=== PATIENT | male | born 1980 | race Caucasian/White ===

== ENCOUNTER 2017-06-26 15:24 | Emergency (ER) | payer OTHER ==
[2017-06-26] MEDS ORDERED: CEPHALEXIN 500 MG CAPSULE PO ONE (15:36)
[2017-06-26] MEDS ORDERED: DIPH/PERTUSS(ACELL)/TETANUS VAC/PF 0.5 ML SYR (>=10YO) IM ONE (15:36)
--- NOTE | 2017-06-26 15:38 | ER Document Report ---
ED General - General Stated Complaint: LEFT LEG INJURY Time Seen by Provider: 06/26/17 15:26 Mode of Arrival: Ambulatory Information source: Patient Notes: 37-year-old male presents with a nail in his left lateral calf. Patient notes he was walking and accidentally got the nail embedded in his leg, both catheters were used to cut the nail in half and patient was brought in by EMS TRAVEL OUTSIDE OF THE [place] IN LAST 30 DAYS: No - HPI Onset: Just prior to arrival Onset/Duration: Sudden Quality of pain: Sharp Severity: Mild Pain Level: 1 Associated symptoms: Other - Patient given 100 mics of fentanyl prior to arrival Exacerbated by: Denies Relieved by: Other Similar symptoms previously: No Recently seen / treated by doctor: No - Related Data Allergies/Adverse Reactions: No Known Allergies Allergy (Verified 09/03/14 13:07) Past Medical History - Social History Smoking Status: Never Smoker Cigarette use (# per day): No Chew tobacco use (# tins/day): No Smoking Education Provided: No Family History: Reviewed & Not Pertinent - Immunizations Hx Diphtheria, Pertussis, Tetanus Vaccination: Yes Review of Systems - Review of Systems Notes: PHYSICAL EXAMINATION: GENERAL: Well-appearing, well-nourished and in no acute distress. HEAD: Atraumatic, normocephalic. EYES: Pupils equal round extraocular movements intact, conjunctiva are normal. ENT: Nares patent NECK: Normal range of motion LUNGS: No respiratory distress Musculoskeletal: Normal range of motion NEUROLOGICAL: Normal speech, normal gait. PSYCH: Normal mood, normal affect. SKIN: Nail noted in left lateral calf Course - Re-evaluation Re-evalutation: 06/26/17 16:15 Foreign body was removed manually with no complication after patient was given pain control by EMS and x-ray was performed. The area was flushed out patient will be started on antibiotics After performing a Medical Screening Examination, I estimate there is LOW risk for OPEN FRACTURE, COMPARTMENT SYNDROME, TENDON RUPTURE, ACUTE NEUROVASCULAR INJURY, or RETAINED FOREIGN BODY, thus I consider the discharge disposition reasonable. Also, there is no evidence or peritonitis, sepsis, or toxicity. I have reevaluated this patient multiple times and no significant life threatening changes are noted. The patient and I have discussed the diagnosis and risks, and we agree with discharging home with close follow-up with the understanding that symptoms and presentations can change. We also discussed returning to the Emergency Department immediately if new or worsening symptoms occur. We have discussed the symptoms which are most concerning (e.g., changing or worsening pain, fever, numbness, weakness, cool or painful digits) that necessitate immediate return. - Diagnostic Test Radiology reviewed: Image reviewed - Foreign body superficial, Reports reviewed Procedures - Additional Procedures Foreign body removal Time performed: 16:05 - Foreign body manually removed with no complications no active bleeding Discharge - Discharge Clinical Impression: Foreign body of left lower leg Qualifiers: Encounter type: initial encounter Qualified Code(s): S80.852A - Superficial foreign body, left lower leg, initial encounter Condition: Stable Disposition: HOME, SELF-CARE Instructions: Puncture Wound ([facility]), Wound Infection ([facility]) Additional Instructions: Return immediately if there are any other concerns Prescriptions: Cephalexin Monohydrate [Keflex 500 mg Capsule] 500 mg PO Q6H 5 Days capsule
--- NOTE | 2017-06-26 15:59 | RADIOLOGY REPORT (SQ) ---
EXAM DESCRIPTION: TIBIA FIBULA LEFT COMPLETED DATE/TIME: 06/26/2017 3:35 pm REASON FOR STUDY: foreign body COMPARISON: None. NUMBER OF VIEWS: One view. TECHNIQUE: AP radiographic image acquired of the left tibia and fibula to include the knee and ankle in at least one projection. LIMITATIONS: None. FINDINGS: MINERALIZATION: Normal. BONES: No acute fracture or dislocation. No worrisome bone lesions. SOFT TISSUES: Metallic object in the lateral soft tissues. OTHER: No other significant finding. IMPRESSION: METALLIC OBJECT IN THE LATERAL SOFT TISSUES. NO BONY FINDINGS. TECHNICAL DOCUMENTATION: JOB ID: [id number] [employer]- All Rights Reserved Reading location - IP/workstation name: [email or web address] [id number]
[2017-06-26 16:03] VITALS: BP 130/80
== END 2017-06-26 16:04 | disposition home or self-care (01) ==
LOC: ER 15:24
PROC: 0JCP0ZZ Extirpation of Matter from Left Lower Leg Subcutaneous Tissue and Fascia, Open Approach (ICD-10-PCS; principal; 2017-06-26)
DX: S80.852A Superficial foreign body, left lower leg, initial encounter (principal); W45.0XXA Nail entering through skin, initial encounter; Z23 Encounter for immunization
CPT/HCPCS: 90471; 90715; 99283